=== PATIENT | female | born 1980 | race Caucasian/White ===

== ENCOUNTER 2019-12-30 08:45 | Day surgery (SDC) | payer OTHER ==
[~2019-12-30] VITALS: Ht 170.2 cm; Wt 70.3 kg
--- NOTE | ~2019-12-30 | OR ---
[facility] [address] [place], [place] [address] Draft DATE OF OPERATION: 12/30/2019 SURGEON: Brent Hood MD PREOPERATIVE DIAGNOSIS: Recurrent acute sinusitis, postoperative scarring from previous mucocele and endoscopic sinus surgery. POSTOPERATIVE DIAGNOSIS: Recurrent acute sinusitis, postoperative scarring from previous mucocele and endoscopic sinus surgery. PROCEDURE: Right-sided frontal sinusotomy, [address]. INDICATIONS: This 39-year-old female had sinus surgery 10 or 15 years ago, was complicated by a mucocele formation that was drained and excavated, released some eight years ago or so. The patient from that previous surgery has gradually narrowed the opening into the frontal sinus on the right side. All the other sinuses remain pretty good. 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 The patient would have mucus buildup in that area, which would then reinfect repeatedly the frontal sinus. This was discovered in the office, but it was not possible to fix in the office. The patient did not tolerate the procedure, needed to have a general anesthetic, so could be done. DESCRIPTION OF PROCEDURE: The patient was placed in the supine position, had an orotracheal intubation was placed under general anesthesia. Endoscopic photographs were taken, preop, intraop and postoperatively. Left side looks good except for inflammatory change to the sinus labyrinth, especially near for airway consistent with allergic rhinitis. The right side was photographed. The problem at hand and Kerrison forceps was used after injecting 1 mL of lidocaine in the surrounding region. This was placed in the posterior ethmoids, anterior ethmoids and the bony bridge of bone was taken down progressively right up into the frontal recess. Then more of the middle turbinate was removed. The frontal sinus Kerrison punch could then be insinuated in the frontal sinus and the rest of the bony stenosis and obstruction were removed with out roughing up or scarring the medial wall so as to minimize the recurrence of a stenosis there. No packing was required. No further procedure was done. Photographs were taken. The patient was awakened, PATIENT NAME: HUGH ODEN OPERATIVE REPORT DATE OF : 78 REPORT #: [id number] PHYSICIAN: BRENT HOOD MD PCP: KHALIF MAGALLANES REPORT IS CONFIDENTIAL AND NOT TO BE RELEASED WITHOUT AUTHORIZATION [facility] [address] [place] [address] [place], [place] [address] Draft extubated and sent to recovery room in good condition. Estimated blood loss was less than 5 mL. No complications. No packing required. MD BHAVANI Carter/VICKIE /[id number] Copies: ~ PATIENT NAME: HUGH ODEN OPERATIVE REPORT DATE OF : 78 REPORT #: [id number] PHYSICIAN: BRENT HOOD MD PCP: KHALIF MAGALLANES REPORT IS CONFIDENTIAL AND NOT TO BE RELEASED WITHOUT AUTHORIZATION
[~2019-12-30 08:45] MED LIST: ANTIVERT25 MG PO; ARMOUR THYROID30 MG PO; CELEBREX100 MG PO; CELEBREX200 MG PO; DROSPIRENONE-E1 EACH PO; IBUPROFEN200 M1 PO; LIDOCAINE700 MG TOP; METHOCARBAMOL750 MG PO; MULTI VITAMIN1 EACH PO; NAPROXEN500 MG PO; NICOTINE PATCH1 EAC1 TD; NORCO 10-325 T1 EACH PO; NORCO 5-325 TA1 EACH PO
--- NOTE | 2019-12-30 10:51 | NUR ---
PT RESTING IN BED WITH ANTONY HUGGER ON WARM. PT PROVIDED TISSUES WITH NASAL DECONGESTANT SPRAY. UP TO BATHROOM WITH RN ASSIST, VOIDS QS WITH NO PROBLEMS. BACK TO DS RM 5. PLAN TO ADMINISTER NASAL DECONGESTANT AT 1100.
--- NOTE | 2019-12-30 13:25 | NUR ---
12/30/19 1325 Lisa Christine 1317- PT ARRIVES TO PACU NONAROUSABLE TO NOXIOUS STIMULI WITH AN OPA IN PLACE. RESP EVEN AND UNLABORED. OXYGEN SAT HIGH 90'S TO 100% ON 10L VIA MASK. 1318- OXYGEN TITRATED DOWN TO 6L VIA MASK.
--- NOTE | 2019-12-30 13:50 | NUR ---
ICED WATER GIVEN. CALL LIGHT IS WITHIN REACH.
--- NOTE | 2019-12-30 14:43 | NUR ---
PT USES CALL LIGHT TO NOTIFY RN OF URGE TO VOID. PT UP TO BATHROOM WITH RN ASSIST, STEADY GAIT AND DENIES DIZZINESS OR NAUSEA. PT ABLE TO VOID 150 MLS YELLOW URINE WITH NO PROBLEMS. PT BACK TO DS RM 5, PROVIDED APPLESAUCE AND CRACKERS PER REQUEST AND ICED WATER REFILLED. PT DENIES ANY PAIN AND HAS TISSUE FOR MINIMAL BLEEDING. CALL LIGHT WITHIN REACH.
--- NOTE | 2019-12-30 15:15 | NUR ---
DC CRITERIA MET, PT DRESSES SELF AND PULLS CURTAIN OPEN WITH FINISHED. DC INSTRUCTIONS GIVEN TO PT, ALL QUESTIONS ADDRESSED. PT CALLS MOTHER FOR SAFE RIDE HOME. PT DC FROM DS RM 5 VIA WC TO PERSONAL VEHICLE AT MAIN ENTRANCE OF HOSPITAL TO HOME.
== END 2019-12-30 15:20 | disposition home or self-care (01) ==
LOC: DS 08:45 → OPS 08:45
PROVIDERS: ATTEND Otolaryngology
PROC: 099W0ZZ Drainage of Right Sphenoid Sinus, Open Approach (ICD-10-PCS; principal; 2019-12-30 10:45)
DX: J01.11 Acute recurrent frontal sinusitis (principal); K21.9 Gastro-esophageal reflux disease without esophagitis; Z79.899 Other long term (current) drug therapy; Z87.891 Personal history of nicotine dependence
CPT/HCPCS: J0330; J1100; J1885; J2250; J2405; J2704; J2765; J3010; J7121

== ENCOUNTER 2024-01-28 14:48 | Emergency (ER) | payer OTHER ==
[~2024-01-28] VITALS: Ht 170.2 cm; Wt 86.7 kg
[2024-01-28] MEDS ORDERED: CILOSTAZOL50 MG PO (15:00)
[2024-01-28] MEDS ORDERED: PROCTO-MED HC28 GM TOP (15:02)
[2024-01-28] MEDS ORDERED: CLEARLAX119 GM PO (15:02)
[2024-01-28] MEDS ORDERED: ANUCORT-HC25 MG PR (15:02)
[2024-01-28] MEDS ORDERED: DICYCLOMINE HCL10 MG PO (15:03)
[2024-01-28] MEDS ORDERED: FLUTICASONE PRO16 GM NAS (15:03)
[2024-01-28] MEDS ORDERED: CARISOPRODOL350 MG PO (15:03)
[2024-01-28 15:11] LABS: BASOPHILS 0.8 % (0-2); EOSINOPHILS 1.2 % (0-6); HEMATOCRIT 47.5 % (35.0-50.0); HEMOGLOBIN 16.6 g/dL (12.0-18.0); LYMPHOCYTES 28.6 % (24-44); MCH 35.5 (27-36); MCHC 34.9 g/dl (30-36); MCV 101.5 fl (81-99); MONOCYTES 8.7 % (0-12); NEUTROPHILS 60.7 % (39-80); PLATELET COUNT 267 K/uL (140-440); RBC 4.67 M/ul (4.3-5.7); RDW 12.8 (10.5-15.0)
[2024-01-28 15:48] LABS: ALBUMIN 3.6 g/dL (3.4-5.0); ALBUMIN/GLOBULIN RATIO 1.06 (1.1-2.4); ALKALINE PHOSPHATASE 70 U/L (46-116); ALT (SGPT) 53 U/L (14-59); ANION GAP 11.3 (7-21); AST (SGOT) 19 U/L (15-37); BILIRUBIN, TOTAL 0.3 ng/dL (0.2-1.0); BUN/CREATININE RATIO 18.75 (6.0-28.6); CARBON DIOXIDE 32 mmol/L (21-32); CHLORIDE 98 mmol/L (98-107); GLOMERULAR FILTRATION RATE,EST 93 mL/min (>60); MAGNESIUM 1.9 mg/dL (1.8-2.4); POTASSIUM 3.3 mmol/L (3.5-5.1); UREA NITROGEN 15 mg/dL (7-18)
[2024-01-28 18:33] VITALS: BP 121/70
--- NOTE | 2024-01-28 19:26 | EKG ---
[facility] [address] [facility] [place], [place] [address] Signed Sinus tachycardia with premature atrial complexes Otherwise normal ECG Confirmed by Shelby Figueroa MD ([id number]) on 01/28/2024 7:25:53 PM Electronically Signed By: SHELBY FIGUEROA MD 01/28/241925 PATIENT NAME: HUGH ODEN Electrocardiogram DATE OF : 78 PHYSICIAN: SHELBY FIGUEROA MD REPORT #: [id number] REPORT IS CONFIDENTIAL AND NOT TO BE RELEASED WITHOUT AUTHORIZATION
== END 2024-01-28 18:34 | disposition home or self-care (01) ==
LOC: ED 14:48
PROVIDERS: Emergency Medicine
DX: R06.00 Dyspnea, unspecified (principal); R07.89 Other chest pain; F17.200 Nicotine dependence, unspecified, uncomplicated; Z88.0 Allergy status to penicillin; Z88.8 Allergy status to other drugs, medicaments and biological substances; Z79.899 Other long term (current) drug therapy
CPT/HCPCS: 36415; 71045; 71260; 80053; 83735; 83880; 84484; 85025; 85379; 93005; 93010; 99285-25; Q9967

== ENCOUNTER 2024-07-18 09:38 | Emergency (ER) | payer OTHER, MEDICARE ==
[~2024-07-18] VITALS: Ht 170.2 cm; Wt 91.0 kg
[~2024-07-18 09:38] MED LIST changes: +ANUCORT-HC25 MG PR; +CARISOPRODOL350 MG PO; +CILOSTAZOL50 MG PO; +CLEARLAX119 GM PO; +DICYCLOMINE HCL10 MG PO; +FLUTICASONE PRO16 GM NAS; +PROCTO-MED HC28 GM TOP
[2024-07-18] MEDS ORDERED: KETOROLAC TROMETHAMINE 15 MG/ML VIAL IM ONE (10:00)
[2024-07-18] MEDS ORDERED: CELECOXIB200 MG PO (11:05)
[2024-07-18] MEDS ORDERED: TRIAMTERENE-HC1 EAC1 PO (11:05)
[2024-07-18] MEDS ORDERED: LEVOTHYROXINE50 MCG PO (11:05)
[2024-07-18] MEDS ORDERED: HYDROCODON-ACE1 EA10 PO (11:06)
[2024-07-18 11:55] VITALS: BP 103/62
== END 2024-07-18 11:55 | disposition home or self-care (01) ==
LOC: ED 09:38
DX: M54.2 Cervicalgia (principal); F17.200 Nicotine dependence, unspecified, uncomplicated; Z88.2 Allergy status to sulfonamides; Z88.1 Allergy status to other antibiotic agents; Z79.899 Other long term (current) drug therapy; Z79.890 Hormone replacement therapy
CPT/HCPCS: 71250; 72125; 96372; 99283-25; J1885